=== PATIENT | male | born 1980 | race Caucasian/White ===

== ENCOUNTER 2016-11-09 17:08 | Emergency (ER) | payer MEDICAID ==
[~2016-11-09] VITALS: Ht 175.3 cm; Wt 86.2 kg
[~2016-11-09 17:08] MED LIST: EPINEPHrine HCL 1 MG/10 ML SYRG IV ONE; SODIUM BICARBONATE 8.4% INJ 50ML SYRINGE IV ONE
[2016-11-09 17:14] VITALS: BP 100/70
[2016-11-09] MEDS ORDERED: AMIODARONE HCL (50 MG/ ML) 3 ML VIAL IV ONE (17:27)
[2016-11-09] MEDS ORDERED: SODIUM CHLORIDE 0.9% 2,000 ML IV ONE (17:45)
[2016-11-09] MEDS ORDERED: AMIODARONE HCL 900 MG in DEXTROSE 500 ML IV SCH (17:54)
[2016-11-09 17:59] LABS: Basophils # (auto) 0.3 uL; Basophils % (auto) 1.7 % (0.0-2.0); DEFINITIVE VIEW TRANSMISSION; Eosinophils # (auto) 0.5 uL; Eosinophils % (auto) 2.6 % (0.0-7.0); Hematocrit 47.7 % (41.0-53.0); Hemoglobin 15.8 g/dL (13.5-17.5); Mean Corpuscular Hemoglobin 29.1 pg (28.0-32.0); Mean Corpuscular Hgb Conc. 33.2 g/dL (32.0-36.0); Mean Corpuscular Volume 87.7 fL (80.0-100.0); Mean Platelet Volume 8.1 fL (7.4-10.4); Monocytes # (auto) 1.1 uL; Monocytes % (auto) 5.5 % (0.0-12.0); Neutrophils # (auto) 11.2 uL; Neutrophils % (auto) 55.2 % (37.0-80.0); Platelet Count (auto) 278 10^3/uL (140-450); Red Cell Distribution Width 11.9 % (11.6-16.0); SUSPECT VIEW TRANSMISSION; White Blood Cell 20.1 10^3/uL (4.4-10.8)
[2016-11-09] MEDS ORDERED: EPINEPHrine HCL 1 MG/1 ML AMP ONE (18:07)
[2016-11-09] MEDS ORDERED: MIDAZOLAM HCL 5 MG/ML-1ML VIAL ONE (18:07)
[2016-11-09] MEDS ORDERED: SODIUM CHLORIDE LOCK 30 ML ONE (18:07)
[2016-11-09] MEDS ORDERED: LIDOCAINE 2%HCL (LOCAL ANESTH.) INJ 20ML MDV ONE (18:07)
[2016-11-09] MEDS ORDERED: LIDOCAINE HCL 2% TOP JELLY 5ML TOP ONE (18:08)
[2016-11-09] MEDS ORDERED: MIDAZOLAM DRIP 100 mg/100mL NS 100 ML IV ONE (18:09)
[2016-11-09 18:18] LABS: Albumin 3.1 g/dL (3.4-5.0); BUN/Creatinine Ratio 15.6; Calcium 7.3 mg/dL (8.5-10.1); Magnesium 2.8 mg/dL (1.6-2.6); Potassium 3.6 mmol/L (3.5-5.1)
[2016-11-09 18:20] LABS: Lactic Acid 7.1 mmol/L (0.4-2.0)
[2016-11-09 18:21] LABS: Bilirubin, Total 0.2 mg/dL (0.2-1.0); Total Protein 6.8 g/dL (6.4-8.2)
[2016-11-09 18:22] LABS: REFLEX LACTIC ACID YES OR NO YES
[2016-11-09] MEDS ORDERED: MIDAZOLAM DRIP 100 mg/100mL NS 100 ML IV SCH ×2 (18:30→19:34)
[2016-11-09 19:10] LABS: INR 1.19 (0.9-1.15)
[2016-11-09 19:30] VITALS: BP 189/90
[2016-11-09] MEDS ORDERED: PROPOFOL 100 ML IV SCH (19:34)
[2016-11-09] MEDS ORDERED: VANCOMYCIN PER PHARMACY 0 MG IV SCH (19:45)
[2016-11-09] MEDS ORDERED: NOREPINEPHRINE BITARTRATE 250 ML IV SCH (19:45)
[2016-11-09] MEDS ORDERED: cefTRIAXone 1GM/50ML D5W 50 ML IV ONE (19:45)
[2016-11-09] MEDS ORDERED: NOREPINEPHRINE BITARTRATE 250 ML IV ONE (19:47)
[2016-11-09 19:59] LABS: Lactic Acid 2.7 mmol/L (0.4-2.0)
[2016-11-09 20:02] LABS: REFLEX LACTIC ACID YES OR NO NO
[2016-11-09 20:15] VITALS: BP 108/46
[2016-11-09] MEDS ORDERED: VANCOMYCIN 1GM/250ML D5W 250 ML IV SCH (21:00)
[2016-11-10] MEDS ORDERED: cefTRIAXone 1GM/50ML D5W 50 ML IV SCH (08:00)
== END 2016-11-09 20:45 | disposition expired ==
LOC: EDUNIT# 17:08 → ER 17:12
DX: I46.9 Cardiac arrest, cause unspecified (principal); T17.428A Food in trachea causing other injury, initial encounter; Z88.1 Allergy status to other antibiotic agents; I48.91 Unspecified atrial fibrillation; R41.82 Altered mental status, unspecified; X58.XXXA Exposure to other specified factors, initial encounter; Y93.89 Activity, other specified; Y99.8 Other external cause status; Y92.89 Other specified places as the place of occurrence of the external cause
CPT/HCPCS: 31605; 36415; 36600; 71010; 80053; 82805; 83605; 83735; 84484; 85025; 85379; 85610; 85730; 87040; 92950; 93005; 94002; 96365; 96366; 99291; J0171; J0282; J2250; J3490; J7030